=== PATIENT | female | born 1980 | race African-American/Black ===

== ENCOUNTER 2018-04-11 21:05 | Emergency (ER) | payer MEDICAID ==
[~2018-04-11] VITALS: Ht 167.6 cm; Wt 64.9 kg
[2018-04-11 21:13] VITALS: BP_SYST 127
--- NOTE | 2018-04-11 21:13 | NUR ---
Patient to ER bed 5 to gown for evaluation. Side rails up. Report given to Elan TOVAR.
--- NOTE | 2018-04-11 21:15 | NUR ---
Pt states she had a mechanical fall getting out of bed three weeks ago. Pt has R knee pain 5/10. Will continue to monitor. No distress noted. AAOx4.
--- NOTE | 2018-04-11 21:20 | NUR ---
ER Dr. Price at bedside examining patient.
[2018-04-11] MEDS ORDERED: IBUPROFEN 800 MG TABLET PO ONE (21:45)
--- NOTE | 2018-04-11 22:40 | NUR ---
Pt is in a wheelchair so stated she does not need crutches.
[2018-04-11 22:46] VITALS: BP_SYST 127
--- NOTE | 2018-04-11 22:46 | NUR ---
Patient given written and verbal discharge instructions and verbalizes understanding. ER MD discussed with patient the results and treatment provided. Patient in stable condition. ID arm band removed. Rx of Motrin given. Patient educated on pain management and to follow up with PMD. Pain Scale 0/10. Opportunity for questions provided and answered. Medication side effect fact sheet provided.
== END 2018-04-11 22:46 | disposition home or self-care (01) ==
LOC: SED 21:05
DX: S86.911A Strain of unspecified muscle(s) and tendon(s) at lower leg level, right leg, initial encounter (principal); R03.0 Elevated blood-pressure reading, without diagnosis of hypertension; W19.XXXA Unspecified fall, initial encounter; Y93.89 Activity, other specified; Y92.89 Other specified places as the place of occurrence of the external cause; Y99.8 Other external cause status
CPT/HCPCS: 73564; 99284

== ENCOUNTER 2019-10-18 11:27 | Emergency (ER) | payer MEDICAID ==
[~2019-10-18] VITALS: Ht 167.6 cm; Wt 61.2 kg
[2019-10-18 11:57] VITALS: BP_SYST 112
--- NOTE | 2019-10-18 15:55 | NUR ---
Patient to ER bed h1 to gown for evaluation. Side rails up.
--- NOTE | 2019-10-18 16:00 | NUR ---
ER at bedside examining patient.
--- NOTE | 2019-10-18 16:00 | NUR ---
Visual acuity done.
[2019-10-18 16:43] VITALS: BP_SYST 112
--- NOTE | 2019-10-18 16:43 | NUR ---
Patient given written and verbal discharge instructions and verbalizes understanding. ER MD discussed with patient the results and treatment provided. Patient in stable condition. ID arm band removed. Rx of Tobramycin and Tylenol given. Patient educated on pain management and to follow up with PMD. Pain Scale 0/10. Opportunity for questions provided and answered. Medication side effect fact sheet provided.
== END 2019-10-18 16:43 | disposition home or self-care (01) ==
LOC: SED 11:27
DX: H10.89 Other conjunctivitis (principal); Z85.841 Personal history of malignant neoplasm of brain
CPT/HCPCS: 99283